=== PATIENT | female | born 1960 | race Caucasian/White ===

== ENCOUNTER 2020-04-15 10:59 | Emergency (ER) | payer OTHER ==
[~2020-04-15] VITALS: Ht 172.7 cm; Wt 84.1 kg
[2020-04-15] MEDS ORDERED: DIPH,PERTUSS(ACELL),TET VAC/PF 0.5 ML SYRINGE. VAX IM ONE (13:45)
[2020-04-15] MEDS ORDERED: ACETAMINOPHEN 325 MG TABLET PO ONE (13:45)
--- NOTE | 2020-04-15 14:21 | PHYS DOC ---
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 Patient states that her last tetanus shot was greater than 5 years ago. Patient denies any numbness or tingling distal from her laceration site. Patient denies any problems moving her finger. Patient reports her pain is a 4/10 on a 1-10 pain scale. Patient denies any recent fever or chills, visual changes, nasal congestion cough or shortness of breath, chest pains, edema, abdominal pain nausea vomiting or diarrhea or constipation. Patient denies any problems urinating back pains joint pains other than the lacerated knuckle, skin rashes, headaches, focal weaknesses or sensory changes. Patient denies any swelling of her glands, depressions, anxieties, patient denies homicidal or suicidal ideation. Patient denies any COVID-19 symptoms, patient states she was tested 2 days ago because of her work, patient states that she does not want to be tested today for the COVID-19 virus. (BRANDON BARRERA APRN) Review of Systems Review of Systems Constitutional: Denies fever or chills Eyes: Denies change in visual acuity, redness, or eye pain HENT: Denies nasal congestion or sore throat Respiratory: Denies cough or shortness of breath Cardiovascular: No additional information not addressed in HPI GI: Denies abdominal pain, nausea, vomiting, bloody stools or diarrhea : Denies dysuria or hematuria Musculoskeletal: Denies back pain or joint pain Integument: Denies rash or skin lesions, laceration to her right ring finger Neurologic: Denies headache, focal weakness or sensory changes Psychiatric: Patient denies homicidal or suicidal ideations, patient denies recent anxieties or depressions. All other systems were reviewed and found to be within normal limits, except as documented in this note. (BRANDON BARRERA APRN) Current Medications Current Medications Current Medications Medications (Trade) Dose Ordered Sig/Oneyda Start Time Stop Time Status Last Admin Dose Admin Acetaminophen (Tylenol) 650 mg 1X ONCE 04/15/20 13:45 04/15/20 13:47 DC Diphtheria/ Pertussis/Tetanus Vacc (ADACEL TDap SYRINGE) 0.5 ml ONCE ONCE 04/15/20 13:45 04/15/20 13:47 DC (BRANDON BARRERA APRN) Allergies Allergies Allergies Coded Allergies Type Severity Reaction Last Updated Verified No Known Drug Allergies 04/15/20 No (BRANDON BARRERA APRN) Physical Exam Physical Exam Constitutional: Well developed, well nourished, no acute distress, non-toxic appearance. HENT: Normocephalic, atraumatic, bilateral external ears normal, oropharynx moist, no oral exudates, nose normal. Eyes: PERRLA, EOMI, conjunctiva normal, no discharge. Neck: Normal range of motion, no tenderness, supple, no stridor. Cardiovascular:Heart rate regular rhythm, no murmur Lungs & Thorax: Bilateral breath sounds clear to auscultation Abdomen: Bowel sounds normal, soft, no tenderness, no masses, no pulsatile masses. Skin: Warm, dry, no erythema, no rash. Laceration to the right index finger MIP joint dorsal surface linear L-shaped approximately 0.5 cm x 0.5 cm without bleeding partial thickness not into adipose tissue or muscle fascia or joint capsule. Distal cap refill less than 2 seconds, no loss of sensation, neurovascular intact, full AROM PROM, no tendon involvement appreciated. Back: No tenderness, no CVA tenderness. [] Extremities: No tenderness, no cyanosis, no clubbing, ROM intact, no edema. [] Neurologic: Alert and oriented X 3, normal motor function, normal sensory function, no focal deficits noted. [] Psychologic: Affect normal, judgement normal, mood normal. [] (BRANDON BARRERA APRN) EKG EKG [] (BRANDON BARRERA APRN) Radiology/Procedures Radiology/Procedures [] (BRANDON BARRERA APRN) Heart Score Risk Factors: Risk Factors: DM, Current or recent (<one month) smoker, HTN, HLP, family history of CAD, obesity. Risk Scores: Risk Factors: DM, Current or recent (<one month) smoker, HTN, HLP, family history of CAD, obesity. (BRANDON BARRERA APRN) Course & Med Decision Making Course & Med Decision Making Pertinent Labs and Imaging studies reviewed. (See chart for details) 59-year-old female presented to the emergency department for a finger laceration, patient states she cut it with a picker box operator while cutting boxes at approximately 8:30 AM. The wound was evaluated, cleansed with chlorhexidine scrub brush and copious pressurized normal saline, there was no foreign body noted during exploration of laceration, laceration was closed with Dermabond, a aluminum finger splint was placed by ED nursing staff. The patient remained neurovascular intact, full AROM PROM prior to splint placement, cap refill was less than 2 seconds. There was no tendon injury or tendon laceration involvement appreciated. Patient was given discharge instructions with care specific to glued skin wounds, patient gave verbal understanding of home care instructions, return to ER concerns, had no further questions or concerns, patient discharged home without incident. (BRANDON BARRERA APRN) Course & Med Decision Making I have reviewed the PA/GUITAR REPAIR TECHNICIAN's note and plan of care. I was available for consultation as needed during the patient's visit in the emergency department. I agree with the clinical impression, plan, and disposition. (KAYLENE SILVERIO DO) Dragon Disclaimer Dragon Disclaimer This electronic medical record was generated, in whole or in part, using a voice recognition dictation system. (BRANDON BARRERA APRN) Laceration Repair Lac Repair Indication: Laceration right index finger MIP joint ventral surface. Procedure: The patient was placed in the appropriate position and anesthesia around the laceration was not performed related to this repair will be done by Dermabond. The area was then cleansed with 240 cc normal saline after it was scrubbed with chlorhexidine scrub brush. The laceration was explored for foreign bodies which there was none, the laceration was closed with Dermabond. The wound area was then dressed with a Band-Aid and then splinted with an aluminum finger splint by ED nursing staff. Total repaired wound length: L-shaped approximately 0.5 cm x 0.5 cm The patient tolerated the procedure well. Complications: No complications scant bleeding during procedure. (BRANDON BARRERA APRN) Departure Departure: Impression: Primary Impression: Laceration of finger, ring Additional Impression: Glued skin wound Disposition: 01 DC HOME SELF CARE/HOMELESS Condition: GOOD Referrals: PCP,NO (PCP) Patient Instructions: Laceration Care, Adult Additional Instructions: You are seen today for a laceration of your right ring finger that was not sutured, it was glued, keep finger splint in place for the next 5 days, do not use lotions, oils, ointments, antibiotic ointments to the repair site as this will cause the glue to lift prematurely. Keep area clean and dry, you can use a loose Band-Aid to protect from the environmental elements. I will start you on a 5-day course of oral antibiotics to prevent infection, I do not feel that it is infected at this time. Return to the emergency department for worsening symptoms or other concerns. Scripts Hydrocodone Bit/Acetaminophen (NORCO 5-325 TABLET) 1 Each Tablet 1 TAB PO Q4-6HRS for pain, #3 TAB 0 Refills Prov: BRANDON BARRERA APRN 04/15/20 Problem Qualifiers Primary Impression: Laceration of finger, ring Encounter type: initial encounter Damage to nail status: without damage Foreign body presence: without foreign body Laterality: right Qualified Codes: S61.214A - Laceration without foreign body of right ring finger without damage to nail, initial encounter BRANDON BARRERA APRN Apr 15, 2020 14:21 KAYLENE SILVERIO DO Apr 16, 2020 20:47
[2020-04-15] MEDS ORDERED: HYDR-3165 PO (14:50)
== END 2020-04-15 15:04 | disposition home or self-care (01) ==
LOC: ER 10:59
DX: S61.210A Laceration without foreign body of right index finger without damage to nail, initial encounter (principal); W26.8XXA Contact with other sharp object(s), not elsewhere classified, initial encounter; Y93.89 Activity, other specified; Y92.89 Other specified places as the place of occurrence of the external cause; Y99.8 Other external cause status
CPT/HCPCS: 12001; 99283